=== PATIENT | female | born 1945 | race Caucasian/White ===

== ENCOUNTER 2019-09-25 06:14 | Observation (INO) | payer MEDICARE ==
[~2019-09-25] VITALS: Ht 160 cm; Wt 94.0 kg
[2019-09-25] MEDS ORDERED: SODIUM CHLORIDE 0.9% 1,000 ML IV SCH (06:57)
[2019-09-25] MEDS ORDERED: DIAZ10TA4 PO (07:12)
[2019-09-25] MEDS ORDERED: APIX5TAB4 PO (07:14)
[2019-09-25] MEDS ORDERED: LISI-424 PO (07:15)
[2019-09-25] MEDS ORDERED: METO-95 PO (07:16)
[2019-09-25] MEDS ORDERED: METO-93 PO (07:16)
[2019-09-25] MEDS ORDERED: SIMV20TA19 PO (07:17)
[2019-09-25] MEDS ORDERED: LEVO25TA2 PO (07:17)
[2019-09-25] MEDS ORDERED: ZYR (07:19)
[2019-09-25] MEDS ORDERED: ZYRTEC (07:20)
[2019-09-25] MEDS ORDERED: FLONASE (07:21)
[2019-09-25] MEDS ORDERED: PROBIOTIC (07:21)
[2019-09-25 07:22] VITALS: BP 112/76
[2019-09-25] MEDS ORDERED: MIDAZOLAM 1 MG/ML, 5ML ONE (07:53)
[2019-09-25] MEDS ORDERED: FENTANYL PF 100 MCG/2ML ONE ×2 (07:53→09:06)
[2019-09-25] MEDS ORDERED: LIDOCAINE 2%, 20ML ONE (07:53)
[2019-09-25] MEDS ORDERED: MIDAZOLAM 1 MG/ML, 2ML ONE (09:05)
[2019-09-25] MEDS ORDERED: [UNRECOGNIZED DRUG - REMARK] MC SCH (11:00)
[2019-09-25 13:55] VITALS: BP 128/72
[2019-09-25] MEDS: DIAZEPAM 10 MG TABLET PO SCH ×2 (16:00→21:00)
[2019-09-25] MEDS ORDERED: DIAZEPAM 5 MG TABLET ONE ×2 (16:47→21:46)
[2019-09-25 20:12] VITALS: BP 103/67
[2019-09-25] MEDS ORDERED: SIMVASTATIN 20 MG TABLET PO SCH (21:00)
[2019-09-25] MEDS ORDERED: APIXABAN 5 MG TABLET PO SCH (21:00)
[2019-09-26] MEDS ORDERED: LEVOTHYROXINE 25 MCG TABLET PO SCH (06:00)
[2019-09-26] MEDS ORDERED: LISINOPRIL 5 MG TABLET PO SCH (09:00)
[2019-09-26] MEDS ORDERED: METOPROLOL SUCCINATE 50 MG TAB.ER.24H PO SCH (09:00)
[2019-09-26] MEDS ORDERED: METOPROLOL SUCCINATE 100 MG TAB.ER.24H PO SCH (09:00)
== END 2019-09-26 12:03 | disposition home or self-care (01) ==
LOC: CACL 06:14 → ORIP 09:20 → 5SO 10:23
PROVIDERS: ADMIT Internal Medicine Cardiovascular Disease; ATTEND Internal Medicine Cardiovascular Disease
DX: I48.92 Unspecified atrial flutter (principal); I10 Essential (primary) hypertension; Z88.0 Allergy status to penicillin; Z88.1 Allergy status to other antibiotic agents
CPT/HCPCS: 93613; 93621; 93653; 99156; 99157; C1730; C1894; C2630; G0378; J2250; J3010; J3490; J7030